=== PATIENT | female | born 1995 | race African-American/Black ===

== ENCOUNTER 2017-01-03 20:28 | Emergency (ER) | payer OTHER ==
[2017-01-03 22:37] LABS: AMORPHOUS SEDIMENT,URINE TRACE /HPF; APPEARANCE,URINE CLOUDY; BILIRUBIN,URINE NEGATIVE (NEGATIVE); GLUCOSE, URINE NEGATIVE (NEGATIVE); KETONES,URINE NEGATIVE (NEGATIVE); LEUKOCYTE ESTERASE,URINE MODERATE (NEGATIVE); NITRITE,URINE NEGATIVE (NEGATIVE); PROTEIN,URINE NEGATIVE (NEGATIVE); UROBILINOGEN,URINE NEGATIVE mg/dL (<2.0)
[2017-01-04] MEDS ORDERED: CEPHALEXIN 500 MG CAPSULE PO ONE (00:09)
[2017-01-04] MEDS ORDERED: PHENAZOPYRIDINE HCL 200 MG TABLET PO ONE (00:09)
--- NOTE | 2017-01-04 00:13 | ER Document Report ---
HPI - HPI Patient complains to provider of: Dysuria Pain Level: 5 Context: Patient is a 21-year-old female that comes emergency department for chief complaint of painful urination today, she denies abdominal pain, flank pain, nausea/vomiting, fever/chills. Patient states her last menstrual cycle was 1 week ago. Patient denies any daily medications other than oral contraceptive. - REPRODUCTIVE LMP: 12-29-16 - DERM Skin Color: Normal Past Medical History - General Information source: Patient - Social History Smoking Status: Never Smoker Frequency of alcohol use: None Drug Abuse: None Lives with: Family Family History: None Patient has suicidal ideation: No Patient has homicidal ideation: No - Medical History Medical History: Negative Renal/ Medical History: Denies: Hx Peritoneal Dialysis Surgical Hx: Negative - Immunizations Immunizations up to date: Yes Hx Diphtheria, Pertussis, Tetanus Vaccination: Yes Vertical Provider Document - CONSTITUTIONAL General Appearance: WD/WN, No Apparent Distress - INFECTION CONTROL TRAVEL OUTSIDE OF THE [place] IN LAST 30 DAYS: No - HEENT HEENT: Atraumatic, Normocephalic - NECK Neck: Normal Inspection - RESPIRATORY Respiratory: Breath Sounds Normal, No Respiratory Distress O2 Sat by Pulse Oximetry: 100 - CARDIOVASCULAR Cardiovascular: Regular Rate, Regular Rhythm - GI/ABDOMEN Gastrointestinal: Abdomen Soft, Abdomen Non-Tender - Nontender abdomen - BACK Back: Normal Inspection. negative: CVA Tenderness-Right, CVA Tenderness-Left - NEURO Level of Consciousness: Awake, Alert, Appropriate Course - Re-evaluation Re-evalutation: Patient describing dysuria consistent with UTI, no abdominal tenderness or CVA tenderness, vital signs unremarkable. Patient states she had a menstrual cycle last week, unfortunately HCG was not run on initial workup, patient is requesting to leave now without waiting any longer. Provided with Keflex, discussed primary care follow-up and return precautions - Vital Signs Vital signs: Temp Pulse Resp BP Pulse Ox 97.8 F 68 18 161/83 H 100 01/03/17 22:03 01/03/17 22:03 01/03/17 22:03 01/03/17 22:03 01/03/17 22:03 - Laboratory Laboratory results interpreted by me: 01/03/17 22:10 Ur Leukocyte Esterase MODERATE H Discharge - Discharge Clinical Impression: Dysuria Urinary tract infection Qualifiers: Urinary tract infection type: site unspecified Hematuria presence: without hematuria Qualified Code(s): N39.0 - Urinary tract infection, site not specified Condition: Stable Disposition: HOME, SELF-CARE Additional Instructions: Urinalysis and symptoms are consistent with a urinary tract infection. Take the Keflex antibiotic as directed, after completion of the antibiotic take the Diflucan to avoid yeast infection. Follow-up with primary care. Return to emergency department for any concerning or worsening symptoms including fever, nausea/vomiting, abdominal/flank pain, etc. Prescriptions: Cephalexin Monohydrate [Keflex 500 mg Capsule] 500 mg PO BID #6 capsule Fluconazole [Diflucan] 150 mg PO ONCE PRN #1 tablet PRN Reason: Forms: Return to Work
[2017-01-04 01:01] VITALS: BP 143/89
== END 2017-01-04 01:00 | disposition home or self-care (01) ==
LOC: ER 20:28
DX: N39.0 Urinary tract infection, site not specified (principal); R30.0 Dysuria
CPT/HCPCS: 99283; 81001; J3490